=== PATIENT | male | born 1990 | race Caucasian/White ===

== ENCOUNTER → 2022-02-03 15:18 | Outpatient (BNVA) | payer MEDICAID, SELFPAY | PROVIDERS: PCP Internal Medicine; Visit Provider Surgery | DX: R22.2 Localized swelling, mass and lump, trunk (principal) | CPT/HCPCS: 99202 ==

== ENCOUNTER 2022-03-05 08:02 | Outpatient (REF) | payer MEDICAID, SELFPAY ==
[2022-03-05 08:05] VITALS: BP 117/64; PULSE 79; RESP 16; TEMP 36.1; O2SAT 96; BMI 35.0
[2022-03-05 08:30] VITALS: BP 109/61; PULSE 78; RESP 16; O2SAT 94
--- NOTE | 2022-03-05 08:30 | P.OP_ITS ---
Operative Note Operative Note Date of Service: 03/05/22 Narrative: Preop diagnosis: Left Buttock mass Postop diagnosis: Large epidermal inclusion cyst, left buttock Procedure: Excision of large epidermal inclusion cyst under local anesthesia, left buttock Surgeon: Saw Pickens MD Patient is a 31-year-old male with a mass on the left buttock, well-defined. He wanted to proceed with excision in view of the discomfort and increased in size. He was aware of the risks, benefits, and alternatives Was brought to the minor procedure room and placed in prone position. The area of the mass was prepped and draped. A surgical time-out as been done. Lidocaine 1% was used for local anesthesia. I made an incision on the skin overlying this mass using blade 15 and this was carried down through the full- thickness of the skin and part of the subcutaneous layer until I was able to visualize what appeared to be a well-defined cyst capsule. I sharply dissected the cyst capsule off of the rest of subcutaneous layer circumferentially using Metzenbaum scissors until this was delivered. This was sent as specimen. This was an epidermal inclusion cyst, about 3.3 cm in diameter. I irrigated the area of excision and closed the incision with full-thickness nylon 3-0 interrupted sutures. Dressings were applied. The procedure was then completed The patient tolerated procedure well. There were no complications noted. I made blood loss was about 2 cc. The patient was given wound care instructions.
== END 2022-03-05 08:03 | disposition home or self-care (01) ==
LOC: HO.MS 08:02
PROVIDERS: PCP Internal Medicine; Visit Provider Surgery
PROC: (CPT 11404; principal; 2022-03-05 08:00)
DX: L72.0 Epidermal cyst (principal)
CPT/HCPCS: 11404; 88304

== ENCOUNTER → 2022-03-17 09:22 | Outpatient (BNVA) | payer MEDICAID, SELFPAY | PROVIDERS: PCP Internal Medicine; Visit Provider Surgery | DX: Z48.817 Encounter for surgical aftercare following surgery on the skin and subcutaneous tissue (principal); Z87.2 Personal history of diseases of the skin and subcutaneous tissue | CPT/HCPCS: 99212 ==

== ENCOUNTER 2024-11-17 11:43 | Outpatient (REF) | payer BC, MEDICAID, SELFPAY ==
[2024-11-17 14:27] LABS: MANUAL DIFF FLAG NO
[2024-11-17 14:41] LABS: Basophils Percent Auto 0.3 % (0-2); Eosinophils Absolute Auto 0.1 X10*3/uL (0.0-0.4); Eosinophils Percent Auto 1.1 % (0-4); Hematocrit 49.3 % (42.0-52.0); Hemoglobin 16.8 g/dl (14.0-18.0); Imm Gran Abs Auto 0.01 X10*3/uL (0.00-0.03); Imm Gran Pct Auto 0.2 % (0.0-0.4); Lymphocytes Absolute Auto 2.6 X10*3/uL (1.2-4.9); Lymphocytes Percent Auto 42.5 % (20-40); Mean Corpuscular HGB Conc 34.1 g/dl (31.0-36.0); Mean Corpuscular Hemoglobin 28.5 pg (27.0-33.0); Mean Corpuscular Volume 83.6 fL (80.0-98.0); Mean Platelet Volume 9.7 fL (9.4-12.4); Monocytes Absolute Auto 0.5 X10*3/uL (0.1-1.2); Monocytes Percent Auto 7.2 % (2-11); Neutrophils Percent Auto 48.7 % (45-73); Platelet Count 257 X10*3/uL (160-400); White Blood Count 6.2 X10*3/uL (4.8-10.8)
[2024-11-17 14:55] LABS: Cholesterol 190 mg/dL (<200); HDL Cholesterol 37 mg/dL (>40); LDL Cholesterol Calculated 120 mg/dL (<100); Triglycerides 166 mg/dL (<150)
[2024-11-17 15:10] LABS: TSH reflex Free T4 2.07 uIU/mL (0.32-4.0)
[2024-11-18 08:04] LABS: Syphilis Screen Nonreactive (Nonreactive)
[2024-11-18 08:14] LABS: HIV AB/AG Nonreactive (Nonreactive); HIV Num 1 0.06 S/CO (0.00-0.99); ~Hepatitis C Antibody Nonreactive (Nonreactive)
== END 2024-11-17 11:44 | disposition home or self-care (01) ==
LOC: HO.CHCLDS 11:43
PROVIDERS: Visit Provider Internal Medicine
DX: G40.909 Epilepsy, unspecified, not intractable, without status epilepticus (principal); E66.812 Obesity, class 2; E66.09 Other obesity due to excess calories; Z68.36 Body mass index [BMI] 36.0-36.9, adult; Z20.2 Contact with and (suspected) exposure to infections with a predominantly sexual mode of transmission
CPT/HCPCS: 36415; 80061; 84443; 85025; 86780; 86803; 87389